=== PATIENT | female | born 1985 | race Native Hawaiian/Other Pacific Islander ===

== ENCOUNTER 2019-01-06 14:51 | Emergency (ER) | payer OTHER ==
[2019-01-06] MEDS ORDERED: IPRATROPIUM/ALBUTEROL 3 ML DEYVIAL IH ONE ×2 (14:55→15:33)
[2019-01-06] MEDS ORDERED: ALBUTEROL 3 ML DEYVIAL IH ONE ×2 (14:55→15:33)
[2019-01-06] MEDS ORDERED: ALBUTEROL 3 ML DEYVIAL ONE (14:59)
[2019-01-06] MEDS ORDERED: IPRATROPIUM/ALBUTEROL 3 ML DEYVIAL ONE (14:59)
[2019-01-06] MEDS ORDERED: predniSONE 20 MG TAB PO ONE (15:33)
--- NOTE | 2019-01-06 15:44 | EDPHY ---
H & P Time Seen by Provider: 01/06/19 14:57 HPI/ROS: CHIEF COMPLAINT: Cough HISTORY OF PRESENT ILLNESS: Per patient she has had a cough for about 2 weeks. It started with an upper respiratory infection with lots of congestion. She states she still has congestion but the cough and shortness of breath have gotten much worse. She says her chest hurts generally across the upper chest. She denies fever. She has had no nausea or vomiting. She has had no diarrhea. She states the cough is dry without sputum. She also states she feels dry in her lips. She denies sore throat. She denies any seasonal allergies. She has tried Robitussin and other [id number] medications without much relief. She has no history of wheezing in the past. REVIEW OF SYSTEMS: Constitutional: No fever, no chills. Eyes: No discharge. ENT: No sore throat. Cardiovascular: Chest pain as per HPI. no palpitations. Respiratory: Per HPI Gastrointestinal: No abdominal pain, no vomiting. Genitourinary: No dysuria. Musculoskeletal: No back pain. Skin: No rashes. Neurological: No headache. General Appearance: Alert, mild respiratory distress. Eyes: Pupils equal and round no pallor or injection. ENT, Mouth: Oropharynx clear, no erythema. Dry lips. Respiratory: Increased respiratory rate, inspiratory and expiratory wheezes throughout. Cardiovascular: Tachycardic, regular, no murmurs rubs or gallops. Gastrointestinal: Abdomen is soft and nontender, no masses, bowel sounds normal. Neurological: Awake, alert, no focal neurologic deficits. Skin: Warm and dry, no rashes. Musculoskeletal: Neck is supple nontender. Extremities are symmetrical, full range of motion, no edema. Psychiatric: Patient is oriented X 3, there is no agitation. Medical/surgical history: Noncontributory. Social history: Patient from [place], in the [place] Over the last 3 years. No recent travel. Smoking Status: Never smoked Constitutional: Initial Vital Signs Temperature (C) 37.3 C 01/06/19 15:02 Heart Rate 109 H 01/06/19 15:02 Respiratory Rate 24 H 01/06/19 15:02 Blood Pressure 117/88 H 01/06/19 15:02 O2 Sat (%) 92 01/06/19 15:02 O2 Delivery Mode Room Air Allergies/Adverse Reactions: No Known Allergies Allergy (Unverified 01/06/19 15:02) Home Medications: Medication Instructions Recorded Azithromycin 250 mg PO DAILY 4 Days #4 tablet 01/06/19 predniSONE 60 mg PO DAILY 4 Days #12 tab 01/06/19 Medical Decision Making - Diagnostics Imaging Results: Imaging Impressions Chest X-Ray 01/06/19 15:16 Impression: Reticulonodular opacities at the lung bases bilaterally, worse on the right, may represent atelectasis. Recommend excluding pneumonia clinically. Imaging: I viewed and interpreted images myself ED Course/Re-evaluation: Re-evaluation after 1st nebulizer, still with significant wheezing. Reviewed x- ray. 4:45 p.m. 2nd re-evaluation after nebs, prednisone. Patient states feeling much better. Work of breathing normalized. Still some scattered wheezes. Arranged for albuterol meter dose inhaler take home. Prescriptions written for prednisone and azithromycin. Strongly recommended she follow up with [facility] later this week for recheck. Reviewed return precautions. Differential Diagnosis: Differential diagnosis includes but is not limited to pneumonia, bronchitis, reactive airways disease, other upper respiratory infection. After evaluation likely upper respiratory infection with acute bronchitis as patient has no previous history of wheezing or respiratory ailments. Improved sufficiently with nebulizers in the emergency department. Also given oral prednisone and will continue for several days as outpatient. Will also give short course of antibiotics given query on x-ray by radiologist. Metered dose inhaler arranged for take home as patient without insurance and likely would not be able to afford this from the pharmacy. Understands return precautions. Stable for discharge. - Data Points Medications Given: Discontinued Medications Albuterol (Proventil Neb) 3 ml IH EDNOW ONE Stop: 01/06/19 14:56 Last Admin: 01/06/19 14:55 Dose: 3 ml Albuterol (Proventil Neb) 3 ml IH EDNOW ONE Stop: 01/06/19 15:34 Last Admin: 01/06/19 15:45 Dose: 3 ml Albuterol/Ipratropium (Duoneb) 3 ml IH EDNOW ONE Stop: 01/06/19 14:56 Last Admin: 01/06/19 14:55 Dose: 3 ml Albuterol/Ipratropium (Duoneb) 3 ml IH EDNOW ONE Stop: 05/20/19 15:34 Last Admin: 01/06/19 15:45 Dose: 3 ml Azithromycin (Zithromax) 500 mg PO EDNOW ONE PRN Reason: Protocol Stop: 01/06/19 16:21 Last Admin: 01/06/19 16:33 Dose: 500 mg Prednisone (Prednisone) 60 mg PO EDNOW ONE Stop: 01/06/19 15:34 Last Admin: 01/06/19 15:39 Dose: 60 mg Departure - Departure Clinical Impression: Wheezing Acute bronchitis Qualifiers: Bronchitis organism: unspecified organism Qualified Code(s): J20.9 - Acute bronchitis, unspecified Condition: Fair Instructions: Acute Bronchitis (ED), How to Use a Nebulizer (ED), Wheezing (ED) Additional Instructions: Use medications as prescribed. Follow up with [facility] this week without fail. Return to the emergency department if he develops fever, worsening shortness of breath or other concerns. Referrals: NONE *PRIMARY CARE P,. [Primary Care Provider] - As per Instructions [facility] [Clinic] - As per Instructions Prescriptions: Azithromycin 250 mg PO DAILY 4 Days #4 tablet predniSONE 60 mg PO DAILY 4 Days #12 tab
[2019-01-06] MEDS ORDERED: AZITHROMYCIN 250 MG TAB PO ONE (16:20)
[2019-01-06] MEDS ORDERED: ALBUTEROL INH PREPACK MDI TAKEHOME ONE (17:07)
[2019-01-06 18:38] VITALS: BP 116/84
== END 2019-01-06 17:30 | disposition home or self-care (01) ==
LOC: CED 14:51
DX: J20.9 Acute bronchitis, unspecified (principal); R06.2 Wheezing
CPT/HCPCS: 71046-PO; 99285-ER; J7512; J7613